=== PATIENT | female | born 1970 | race Caucasian/White ===

== ENCOUNTER 2021-11-04 02:02 | Emergency (ER) | payer MEDICAID ==
[~2021-11-04] VITALS: Ht 160 cm; Wt 52.2 kg
[2021-11-04] MEDS ORDERED: SODIUM CHLORIDE 0.9% 1,000 ML IV ONE ×2 (03:00)
[2021-11-04] MEDS ORDERED: InsuLIN REG 1unit/0.01ml Soln (100units/ml) IV ONE (03:00)
[2021-11-04 03:24] LABS: Basophils # (auto) 0.1 10 ^3/uL (0-0.2); Basophils % (auto) 1.1 % (0.0-2.0); Eosinophils # (auto) 0.3 10 ^3/uL (0-0.8); Eosinophils % (auto) 2.5 % (0.0-7.0); Hematocrit 45.9 % (36.0-46.0); Hemoglobin 15.9 g/dL (12.2-16.2); Lymphocytes # (auto) 3.6 10 ^3/uL (0.4-5.4); Lymphocytes % (auto) 29.6 % (10.0-50.0); Mean Corpuscular Hgb Conc. 34.6 g/dL (32.0-36.0); Mean Corpuscular Volume 95.6 fL (80.0-100.0); Monocytes # (auto) 0.8 10 ^3/uL (0-1.3); Monocytes % (auto) 6.9 % (0.0-12.0); Neutrophils # (auto) 7.2 10 ^3/uL (1.6-8.6); Neutrophils % (auto) 59.9 % (37.0-80.0); Nucleated Red Blood Cells % 0.1 %; Red Cell Distribution Width 12.4 % (11.8-14.3); White Blood Cell 12.1 10^3/uL (4.4-10.8)
[2021-11-04 03:43] LABS: Albumin 3.2 g/dL (3.4-5.0); Calcium 8.8 mg/dL (8.5-10.1); Potassium 4.1 mmol/L (3.5-5.1)
[2021-11-04 03:52] LABS: BUN/Creatinine Ratio 23.3; Bilirubin, Total 0.4 mg/dL (0.2-1.0); Total Protein 7.7 g/dL (6.4-8.2)
[2021-11-04] MEDS ORDERED: NITR-87 PO (04:19)
[2021-11-04 04:25] VITALS: BP 134/93
[2021-11-04] MEDS ORDERED: cefTRIAXone 1GM/50ML D5W 50 ML IV ONE (04:30)
== END 2021-11-04 04:36 | disposition left against medical advice (07) ==
LOC: ER 02:02
DX: E11.65 Type 2 diabetes mellitus with hyperglycemia (principal); N39.0 Urinary tract infection, site not specified; I10 Essential (primary) hypertension; F17.210 Nicotine dependence, cigarettes, uncomplicated; Z90.710 Acquired absence of both cervix and uterus
CPT/HCPCS: 36415; 80053; 83036; 84484; 85025; 96361; 96374; 99283; J1815; J7030

== ENCOUNTER 2021-11-20 10:10 | Inpatient (IN) | payer MEDICAID ==
[~2021-11-20] VITALS: Ht 160 cm; Wt 53.0 kg
[~2021-11-20 10:10] MED LIST: NITR-87 PO
[2021-11-20] MEDS ORDERED: InsuLIN REG 1unit/0.01ml Soln (100units/ml) IV ONE (10:45)
[2021-11-20] MEDS ORDERED: SODIUM CHLORIDE 0.9% 1,000 ML IV ONE ×2 (10:45)
[2021-11-20 11:28] LABS: Albumin 3.6 g/dL (3.4-5.0); Calcium 8.5 mg/dL (8.5-10.1); Potassium 5.5 mmol/L (3.5-5.1)
[2021-11-20 11:30] LABS: Basophils # (auto) 0.1 10 ^3/uL (0-0.2); Basophils % (auto) 0.9 % (0.0-2.0); Eosinophils # (auto) 0 10 ^3/uL (0-0.8); Eosinophils % (auto) 0.1 % (0.0-7.0); Hematocrit 55.4 % (36.0-46.0); Hemoglobin 17.2 g/dL (12.2-16.2); Lymphocytes # (auto) 1.6 10 ^3/uL (0.4-5.4); Lymphocytes % (auto) 11.2 % (10.0-50.0); Mean Corpuscular Hemoglobin 32.6 pg (28.0-32.0); Mean Corpuscular Volume 105.3 fL (80.0-100.0); Monocytes # (auto) 0.3 10 ^3/uL (0-1.3); Monocytes % (auto) 2.4 % (0.0-12.0); Neutrophils # (auto) 12.6 10 ^3/uL (1.6-8.6); Neutrophils % (auto) 85.4 % (37.0-80.0); Nucleated Red Blood Cells % 0.1 %; Red Blood Cells 5.26 10^6/uL (4.0-5.20); Red Cell Distribution Width 14.1 % (11.8-14.3); White Blood Cell 14.7 10^3/uL (4.4-10.8)
[2021-11-20 11:31] LABS: Urine Bacteria NONE SEEN /hpf (None Seen); Urine Blood TRACE /uL (Negative); Urine Mucus FEW (None Seen); Urine Specific Gravity 1.027 (1.001-1.035); Urine WBC 4 /hpf (0 - 5)
[2021-11-20 11:37] LABS: BUN/Creatinine Ratio 18.4; Bilirubin, Total 0.4 mg/dL (0.2-1.0); Total Protein 8.4 g/dL (6.4-8.2)
[2021-11-20] MEDS ORDERED: INSULIN LANTUS (GLARGINE) 1 /0.01ml (100units/ml) SC ONE (12:30)
[2021-11-20] MEDS ORDERED: DEXTROSE (50%) 50ML SYRG IV PRN ×2 (12:30→18:00)
[2021-11-20] MEDS: ACCU-CHEK COMFORT CURVE STRIP VI SCH ×8 (13:33→22:41)
[2021-11-20] MEDS: InsuLIN R (HUMAN) 100 UNITS in SODIUM CHL 0.9% 99 ML IV SCH ×6 (13:35→20:59)
[2021-11-20] MEDS ORDERED: PANTOPRAZOLE 40 MG/10 ML VIAL INJ IV ONE (16:30)
[2021-11-20] MEDS ORDERED: SODIUM CHLORIDE 0.9% 2,000 ML IV ONE (17:00)
[2021-11-20] MEDS ORDERED: MORPHINE SULFATE INJ 2 MG/ml SYRG IV PRN ×2 (18:00)
[2021-11-20] MEDS ORDERED: NITROGLYCERIN 0.4 MG SL TAB SL PRN (18:00)
[2021-11-20] MEDS ORDERED: ONDANSETRON HCL 4 MG/2 ML VIAL IV PRN (18:00)
[2021-11-20] MEDS ORDERED: HYDROcodone-ACET 5/325MG TAB PO PRN (18:00)
[2021-11-20] MEDS ORDERED: ACETAMINOPHEN 325 MG TAB PO PRN (18:00)
[2021-11-20 19:49] LABS: Hematocrit 52.8 % (36.0-46.0); Hemoglobin 16.9 g/dL (12.2-16.2); Mean Corpuscular Hemoglobin 31.5 pg (28.0-32.0); Mean Corpuscular Volume 98.4 fL (80.0-100.0); Red Blood Cells 5.37 10^6/uL (4.0-5.20); Red Cell Distribution Width 12.9 % (11.8-14.3); White Blood Cell 20.4 10^3/uL (4.4-10.8)
[2021-11-20 19:51] LABS: Basophils % (manual) 0 (0.0-2.0); Blast Cells 0; Metamyelocytes % 0; Myelocytes % 0; Promyelocytes % 0; Reactive Lymphocytes 0
[2021-11-20 19:57] LABS: Calcium 8.4 mg/dL (8.5-10.1); Potassium 4.2 mmol/L (3.5-5.1)
[2021-11-20 20:01] LABS: Magnesium 2.1 mg/dL (1.6-2.6); Phosphorus 1.8 mg/dL (2.5-4.90)
[2021-11-20] MEDS: SODIUM CHLORIDE 0.9% 1,000 ML IV SCH ×3 (20:02→23:55)
[2021-11-20 20:39] LABS: Band Neutrophils % (manual) 5; Eosinophils % (manual) 1 (0-7); Lymphocytes % (manual) 9 (10.0-50.0); Monocytes % (manual) 5 (0-12)
[2021-11-20] MEDS ORDERED: SODIUM CHLORIDE 0.9% 1,000 ML IV SCH (22:00)
[2021-11-20 22:55] LABS: Amphetamine Screen, Urine NEGATIVE (NEGATIVE); Barbiturate Scree,Urine NEGATIVE (NEGATIVE); Benzodiazephine Screen, Urine NEGATIVE (NEGATIVE); Cannabinoid Screen, Urine NEGATIVE (NEGATIVE); Cocaine Screen, Urine NEGATIVE (NEGATIVE); Opiate Scree,Urine NEGATIVE (NEGATIVE); Phencyclidine Screen, Urine NEGATIVE (NEGATIVE)
[2021-11-21] MEDS ORDERED: SODIUM CHLORIDE 0.9% 1,000 ML IV SCH
[2021-11-21] MEDS: ACCU-CHEK COMFORT CURVE STRIP VI SCH ×13 (00:01→18:08)
[2021-11-21] MEDS ORDERED: SODIUM BICARBONATE 8.4 % INJ 50ML VIAL IV ONE (01:00)
[2021-11-21] MEDS: SODIUM CHLORIDE 0.9% 1,000 ML IV SCH ×13 (01:00→22:00)
[2021-11-21] MEDS: D5W/SOD CHLO 0.9% 1,000 ML IV SCH ×3 (01:11→21:00)
[2021-11-21 01:33] LABS: BUN/Creatinine Ratio 41.4; Calcium 7.4 mg/dL (8.5-10.1); Potassium 3.4 mmol/L (3.5-5.1)
[2021-11-21 03:57] LABS: BUN/Creatinine Ratio 43.6; Calcium 7.3 mg/dL (8.5-10.1); Potassium 3.3 mmol/L (3.5-5.1)
[2021-11-21 07:30] LABS: Calcium 7.6 mg/dL (8.5-10.1)
[2021-11-21 07:32] LABS: BUN/Creatinine Ratio 43.1
[2021-11-21] MEDS: POTASSIUM CHL 20MEQ/100ML 100 ML IV SCH ×3 (09:40→22:41)
[2021-11-21] MEDS ORDERED: INSULIN LANTUS (GLARGINE) 1 /0.01ml (100units/ml) SC SCH (10:00)
[2021-11-21] MEDS: ENOXAPARIN SOD 40 MG/0.4 ML SYRINGE SC SCH (10:46)
[2021-11-21] MEDS: INSULIN LANTUS (GLARGINE) 1 /0.01ml (100units/ml) SC SCH (10:46)
[2021-11-21 11:01] LABS: BUN/Creatinine Ratio 46.5; Calcium 7.5 mg/dL (8.5-10.1); Potassium 3.4 mmol/L (3.5-5.1)
[2021-11-21 11:29] LABS: Magnesium 1.8 mg/dL (1.6-2.6)
[2021-11-21 11:37] LABS: Phosphorus 0.5 mg/dL (2.5-4.90)
[2021-11-21] MEDS ORDERED: POTASSIUM PHOSPHATE 44 MEQ in D5W 5% 250 ML IV ONE (11:45)
[2021-11-21] MEDS: MAGNESIUM OXIDE 400 MG TAB PO SCH ×2 (12:48→22:00)
[2021-11-21 15:14] LABS: BUN/Creatinine Ratio 36.2; Calcium 7.4 mg/dL (8.5-10.1); Potassium 3.4 mmol/L (3.5-5.1)
[2021-11-21 19:34] LABS: BUN/Creatinine Ratio 34.2; Potassium 3.3 mmol/L (3.5-5.1)
[2021-11-21 22:22] LABS: BUN/Creatinine Ratio 29.4; Calcium 7.1 mg/dL (8.5-10.1); Potassium 3.2 mmol/L (3.5-5.1)
[2021-11-21] MEDS ORDERED: POTASSIUM CHL 20MEQ/100ML 100 ML IV ONE (22:36)
[2021-11-22] MEDS: ACCU-CHEK COMFORT CURVE STRIP VI SCH ×6 (00:15→20:07)
[2021-11-22] MEDS: POTASSIUM CHL 20MEQ/100ML 100 ML IV SCH (00:16)
[2021-11-22] MEDS: InsuLIN REG 1unit/0.01ml Soln (100units/ml) SC SCH ×6 (00:16→20:08)
[2021-11-22 03:21] LABS: BUN/Creatinine Ratio 18.9; Calcium 6.9 mg/dL (8.5-10.1); Potassium 3.5 mmol/L (3.5-5.1)
[2021-11-22 04:30] VITALS: BP 106/65
[2021-11-22] MEDS: D5W/SOD CHLO 0.9% 1,000 ML IV SCH ×3 (06:52→17:00)
[2021-11-22] MEDS ORDERED: BUSP10TA90 PO (06:57)
[2021-11-22] MEDS ORDERED: INS7030I SC (06:57)
[2021-11-22 08:55] LABS: Basophils # (auto) 0.1 10 ^3/uL (0-0.2); Basophils % (auto) 1.3 % (0.0-2.0); Eosinophils # (auto) 0.2 10 ^3/uL (0-0.8); Eosinophils % (auto) 2.1 % (0.0-7.0); Hematocrit 41.5 % (36.0-46.0); Hemoglobin 14.2 g/dL (12.2-16.2); Lymphocytes # (auto) 3.5 10 ^3/uL (0.4-5.4); Lymphocytes % (auto) 33.4 % (10.0-50.0); Mean Corpuscular Hemoglobin 32.4 pg (28.0-32.0); Mean Corpuscular Hgb Conc. 34.2 g/dL (32.0-36.0); Mean Corpuscular Volume 94.7 fL (80.0-100.0); Monocytes # (auto) 0.7 10 ^3/uL (0-1.3); Monocytes % (auto) 6.3 % (0.0-12.0); Neutrophils # (auto) 5.9 10 ^3/uL (1.6-8.6); Neutrophils % (auto) 56.9 % (37.0-80.0); Red Blood Cells 4.39 10^6/uL (4.0-5.20); Red Cell Distribution Width 13.1 % (11.8-14.3); White Blood Cell 10.4 10^3/uL (4.4-10.8)
[2021-11-22 09:00] VITALS: BP 117/89
[2021-11-22 09:08] LABS: Calcium 7.1 mg/dL (8.5-10.1); Magnesium 1.9 mg/dL (1.6-2.6); Potassium 3.4 mmol/L (3.5-5.1)
[2021-11-22 09:11] LABS: BUN/Creatinine Ratio 16.7
[2021-11-22 09:17] LABS: Phosphorus 0.7 mg/dL (2.5-4.90)
[2021-11-22] MEDS: ENOXAPARIN SOD 40 MG/0.4 ML SYRINGE SC SCH (09:47)
[2021-11-22] MEDS: MAGNESIUM OXIDE 400 MG TAB PO SCH ×2 (09:47→22:12)
[2021-11-22] MEDS: INSULIN LANTUS (GLARGINE) 1 /0.01ml (100units/ml) SC SCH (09:48)
[2021-11-22] MEDS ORDERED: POTASSIUM PHOSPHATE 44 MEQ in D5W 5% 250 ML IV ONE (10:00)
[2021-11-22 13:00] VITALS: BP 126/82
[2021-11-22 14:53] LABS: BUN/Creatinine Ratio 13.3; Calcium 7.5 mg/dL (8.5-10.1); Potassium 3.6 mmol/L (3.5-5.1)
[2021-11-22 17:00] VITALS: BP 123/87
[2021-11-22 18:14] LABS: Calcium 7.3 mg/dL (8.5-10.1); Potassium 3.7 mmol/L (3.5-5.1)
[2021-11-22] MEDS: SODIUM CHLORIDE 0.9% 1,000 ML IV SCH ×3 (20:07→20:10)
[2021-11-22 22:00] VITALS: BP 100/69
[2021-11-22] MEDS: busPIRone HCL 10 MG TAB PO SCH (22:12)
[2021-11-22 22:45] LABS: BUN/Creatinine Ratio 18.8; Calcium 7.7 mg/dL (8.5-10.1); Potassium 3.7 mmol/L (3.5-5.1)
[2021-11-23] MEDS: ACCU-CHEK COMFORT CURVE STRIP VI SCH ×4 (00:16→12:27)
[2021-11-23] MEDS: InsuLIN REG 1unit/0.01ml Soln (100units/ml) SC SCH ×4 (00:19→12:33)
[2021-11-23] MEDS: SODIUM CHLORIDE 0.9% 1,000 ML IV SCH ×2 (00:40→09:45)
[2021-11-23] MEDS: D5W/SOD CHLO 0.9% 1,000 ML IV SCH ×2 (04:16→13:00)
[2021-11-23 05:00] VITALS: BP 108/68
[2021-11-23 09:00] VITALS: BP 115/79
[2021-11-23] MEDS: MAGNESIUM OXIDE 400 MG TAB PO SCH (09:45)
[2021-11-23] MEDS: ENOXAPARIN SOD 40 MG/0.4 ML SYRINGE SC SCH (09:45)
[2021-11-23] MEDS: busPIRone HCL 10 MG TAB PO SCH (09:45)
[2021-11-23] MEDS: INSULIN LANTUS (GLARGINE) 1 /0.01ml (100units/ml) SC SCH (09:46)
[2021-11-23] MEDS ORDERED: BLOO1KIT60 XX (12:02)
[2021-11-23] MEDS ORDERED: LANC-347 XX (12:02)
[2021-11-23] MEDS ORDERED: INSU-567 XX (12:02)
[2021-11-23] MEDS ORDERED: INSLANTI SC (12:02)
[2021-11-23 13:00] VITALS: BP 110/78
== END 2021-11-23 13:29 | disposition home or self-care (01) | DRG 420 ==
LOC: EDBD 10:10 → ER 10:10 → TELE 17:55 → TELE-CENTR 11-22 04:27
PROVIDERS: ADMIT Internal Medicine; ATTEND Internal Medicine
DX: E11.10 Type 2 diabetes mellitus with ketoacidosis without coma (principal); E87.8 Other disorders of electrolyte and fluid balance, not elsewhere classified; E83.39 Other disorders of phosphorus metabolism; D72.829 Elevated white blood cell count, unspecified; D75.1 Secondary polycythemia; F15.10 Other stimulant abuse, uncomplicated; F17.210 Nicotine dependence, cigarettes, uncomplicated; Z79.4 Long term (current) use of insulin; Z71.51 Drug abuse counseling and surveillance of drug abuser; Z20.822 Contact with and (suspected) exposure to COVID-19
CPT/HCPCS: 36415; 36600; 71045; 80048; 80053; 80307; 81001; 82010; 82805; 82962; 83735; 83930; 84100; 84484; 85007; 85025; 85027; 93005; 96361; 96374; 99291; C9113; G0378; J1815; J3480; J7042; J7060

== ENCOUNTER 2022-01-09 23:02 | Inpatient (IN) | payer MEDICAID ==
[~2022-01-09] VITALS: Ht 165.1 cm; Wt 54.0 kg
[~2022-01-09 23:02] MED LIST changes: +BLOO1KIT60 XX; +BUSP10TA90 PO; +INSLANTI SC; +INSU-567 XX; +LANC-347 XX; -NITR-87 PO
[2022-01-09 23:43] LABS: Basophils # (auto) 0.1 10 ^3/uL (0-0.2); Eosinophils # (auto) 0.1 10 ^3/uL (0-0.8); Mean Corpuscular Hemoglobin 31.7 pg (28.0-32.0); White Blood Cell 6.3 10^3/uL (4.4-10.8)
[2022-01-09 23:45] LABS: Basophils % (auto) 1.8 % (0.0-2.0); Eosinophils % (auto) 2.3 % (0.0-7.0); Hematocrit 52.8 % (36.0-46.0); Hemoglobin 17.3 g/dL (12.2-16.2); Lymphocytes # (auto) 1.5 10 ^3/uL (0.4-5.4); Lymphocytes % (auto) 24.3 % (10.0-50.0); Mean Corpuscular Hgb Conc. 32.8 g/dL (32.0-36.0); Mean Corpuscular Volume 96.7 fL (80.0-100.0); Monocytes # (auto) 0.8 10 ^3/uL (0-1.3); Monocytes % (auto) 12.2 % (0.0-12.0); Neutrophils # (auto) 3.7 10 ^3/uL (1.6-8.6); Neutrophils % (auto) 59.4 % (37.0-80.0); Nucleated Red Blood Cells % 0.1 %; Red Blood Cells 5.47 10^6/uL (4.0-5.20); Red Cell Distribution Width 13.4 % (11.8-14.3)
[2022-01-10 00:03] LABS: Calcium 8.5 mg/dL (8.5-10.1)
[2022-01-10 00:11] LABS: Potassium 2.8 mmol/L (3.5-5.1)
[2022-01-10 00:19] LABS: BUN/Creatinine Ratio 31.7; Bilirubin, Total 3.3 mg/dL (0.2-1.0); Total Protein 6.9 g/dL (6.4-8.2)
[2022-01-10] MEDS ORDERED: SODIUM CHLORIDE 0.9% 1,000 ML IV ONE (00:30)
[2022-01-10] MEDS: POTASSIUM CHL 20MEQ/100ML 100 ML IV SCH ×2 (01:30→04:04)
[2022-01-10] MEDS: MAGNESIUM SULFATE 1GM/100ML 100 ML IV SCH ×2 (01:30→03:02)
[2022-01-10] MEDS ORDERED: ALBUMIN 25% 100 ML IV ONE (04:45)
[2022-01-10] MEDS ORDERED: IBUPROFEN 400 MG TAB PO PRN (04:45)
[2022-01-10] MEDS ORDERED: MORPHINE SULFATE INJ 2 MG/ml SYRG IV PRN ×2 (04:45→05:00)
[2022-01-10] MEDS ORDERED: SODIUM CHLORIDE 0.9% 1,000 ML IV SCH (04:45)
[2022-01-10] MEDS ORDERED: DOCUSATE SOD 100 MG CAP PO PRN (04:45)
[2022-01-10] MEDS ORDERED: ONDANSETRON HCL 4 MG/2 ML VIAL IV PRN (04:45)
[2022-01-10] MEDS ORDERED: DEXTROSE (50%) 50ML SYRG IV PRN (04:45)
[2022-01-10] MEDS ORDERED: NITROGLYCERIN 0.4 MG SL TAB SL PRN (05:00)
[2022-01-10 05:19] LABS: Basophils # (auto) 0.1 10 ^3/uL (0-0.2); Hemoglobin 17.9 g/dL (12.2-16.2); Monocytes # (auto) 0.7 10 ^3/uL (0-1.3); Nucleated Red Blood Cells % 0.2 %
[2022-01-10 05:21] LABS: Basophils % (auto) 1.1 % (0.0-2.0); Eosinophils # (auto) 0 10 ^3/uL (0-0.8); Eosinophils % (auto) 0.6 % (0.0-7.0); Hematocrit 54.3 % (36.0-46.0); Lymphocytes % (auto) 24.7 % (10.0-50.0); Mean Corpuscular Hemoglobin 32.1 pg (28.0-32.0); Mean Corpuscular Volume 97.4 fL (80.0-100.0); Monocytes % (auto) 9.4 % (0.0-12.0); Neutrophils # (auto) 5.1 10 ^3/uL (1.6-8.6); Neutrophils % (auto) 64.2 % (37.0-80.0); Red Blood Cells 5.58 10^6/uL (4.0-5.20); Red Cell Distribution Width 13.8 % (11.8-14.3); White Blood Cell 7.9 10^3/uL (4.4-10.8)
[2022-01-10] MEDS: ACCU-CHEK COMFORT CURVE STRIP VI SCH ×3 (06:08→17:59)
[2022-01-10 06:10] LABS: Albumin 3.3 g/dL (3.4-5.0); Calcium 8.5 mg/dL (8.5-10.1); Potassium 3.7 mmol/L (3.5-5.1)
[2022-01-10 06:15] LABS: BUN/Creatinine Ratio 33.3
[2022-01-10] MEDS: InsuLIN REG 1unit/0.01ml Soln (100units/ml) SC SCH ×3 (06:15→18:01)
[2022-01-10 06:21] LABS: Bilirubin, Total 4.1 mg/dL (0.2-1.0); Total Protein 6.9 g/dL (6.4-8.2)
[2022-01-10 06:25] LABS: Urine Bacteria FEW /hpf (None Seen); Urine Blood Negative /uL (Negative); Urine Mucus FEW (None Seen); Urine WBC 8 /hpf (0 - 5)
[2022-01-10 10:20] VITALS: BP 126/71
[2022-01-10 11:59] VITALS: BP 143/80
[2022-01-10] MEDS: SODIUM CHLORIDE 0.9% 1,000 ML IV SCH ×2 (13:00→22:09)
[2022-01-10] MEDS: FAMOTIDINE (10MG/ML) 2ML VL IV SCH ×2 (13:44→22:09)
[2022-01-10 14:05] VITALS: BP 117/70
[2022-01-10 17:11] VITALS: BP 127/77
[2022-01-10 22:00] VITALS: BP 132/76
[2022-01-11] MEDS: InsuLIN REG 1unit/0.01ml Soln (100units/ml) SC SCH ×4 (00:23→17:28)
[2022-01-11] MEDS: ACCU-CHEK COMFORT CURVE STRIP VI SCH ×4 (00:26→17:27)
[2022-01-11] MEDS: SODIUM CHLORIDE 0.9% 1,000 ML IV SCH ×3 (04:42→16:36)
[2022-01-11 05:00] VITALS: BP 120/74
[2022-01-11 06:42] LABS: Basophils # (auto) 0.1 10 ^3/uL (0-0.2); Basophils % (auto) 1.3 % (0.0-2.0); Eosinophils # (auto) 0.2 10 ^3/uL (0-0.8); Eosinophils % (auto) 2.6 % (0.0-7.0); Hemoglobin 15.7 g/dL (12.2-16.2); Lymphocytes # (auto) 2.9 10 ^3/uL (0.4-5.4); Lymphocytes % (auto) 31.8 % (10.0-50.0); Mean Corpuscular Hemoglobin 32.2 pg (28.0-32.0); Mean Corpuscular Hgb Conc. 33.3 g/dL (32.0-36.0); Mean Corpuscular Volume 96.7 fL (80.0-100.0); Monocytes # (auto) 0.7 10 ^3/uL (0-1.3); Monocytes % (auto) 8.1 % (0.0-12.0); Neutrophils # (auto) 5.2 10 ^3/uL (1.6-8.6); Neutrophils % (auto) 56.2 % (37.0-80.0); Nucleated Red Blood Cells % 0.2 %; Red Blood Cells 4.86 10^6/uL (4.0-5.20); Red Cell Distribution Width 13.4 % (11.8-14.3); White Blood Cell 9.3 10^3/uL (4.4-10.8)
[2022-01-11 06:55] LABS: INR 1.29 (0.9-1.15)
[2022-01-11 07:12] LABS: Potassium 3.3 mmol/L (3.5-5.1)
[2022-01-11 07:31] LABS: Albumin 2.9 g/dL (3.4-5.0); Bilirubin, Total 4.1 mg/dL (0.2-1.0); Calcium 7.7 mg/dL (8.5-10.1); Magnesium 1.6 mg/dL (1.6-2.6); Total Protein 5.6 g/dL (6.4-8.2)
[2022-01-11 08:27] VITALS: BP 144/85
[2022-01-11] MEDS: LACTULOSE 20Gm/30ML SOLN PO SCH (08:33)
[2022-01-11] MEDS: FAMOTIDINE (10MG/ML) 2ML VL IV SCH (08:33)
[2022-01-11 12:31] VITALS: BP 122/76
[2022-01-11 17:12] VITALS: BP 123/73
[2022-01-11] MEDS: SUCRALFATE 1 GM/10 ML ORAL SUSP PO SCH ×2 (17:27→21:19)
[2022-01-11] MEDS: PANTOPRAZOLE 40 MG/10 ML VIAL INJ IV SCH (21:19)
[2022-01-11 22:00] VITALS: BP 137/93
[2022-01-12] MEDS: InsuLIN REG 1unit/0.01ml Soln (100units/ml) SC SCH ×5 (00:23→23:47)
[2022-01-12] MEDS: ACCU-CHEK COMFORT CURVE STRIP VI SCH ×5 (00:26→23:47)
[2022-01-12 05:00] VITALS: BP 139/89
[2022-01-12] MEDS: SODIUM CHLORIDE 0.9% 1,000 ML IV SCH ×3 (05:43→21:25)
[2022-01-12] MEDS: SUCRALFATE 1 GM/10 ML ORAL SUSP PO SCH ×4 (07:50→21:28)
[2022-01-12 08:24] VITALS: BP 118/82
[2022-01-12] MEDS: LACTULOSE 20Gm/30ML SOLN PO SCH (09:50)
[2022-01-12] MEDS: PANTOPRAZOLE 40 MG/10 ML VIAL INJ IV SCH ×2 (09:50→21:27)
[2022-01-12 11:15] LABS: Albumin 2.9 g/dL (3.4-5.0); Calcium 8.2 mg/dL (8.5-10.1); Potassium 3.8 mmol/L (3.5-5.1)
[2022-01-12 11:25] LABS: BUN/Creatinine Ratio 15.5; Bilirubin, Total 6.2 mg/dL (0.2-1.0); Total Protein 5.7 g/dL (6.4-8.2)
[2022-01-12] MEDS: cefTRIAXone 1GM/50ML D5W 50 ML IV SCH (11:49)
[2022-01-12 12:29] LABS: Hepatitis A Ab IgM Negative; Hepatitis B Core IgM Negative
[2022-01-12 12:35] VITALS: BP 114/80
[2022-01-12 12:36] LABS: Hepatitis C Antibody Reactive (Negative)
[2022-01-12 16:23] VITALS: BP 119/83
[2022-01-12] MEDS: URSODIOL 300 MG CAP PO SCH (21:28)
[2022-01-12 22:00] VITALS: BP 109/69
[2022-01-13] MEDS: SODIUM CHLORIDE 0.9% 1,000 ML IV SCH ×2 (04:30→15:14)
[2022-01-13 05:00] VITALS: BP 138/88
[2022-01-13 05:32] LABS: Basophils # (auto) 0.1 10 ^3/uL (0-0.2); Basophils % (auto) 1.2 % (0.0-2.0); Eosinophils # (auto) 0.3 10 ^3/uL (0-0.8); Eosinophils % (auto) 4.1 % (0.0-7.0); Hematocrit 43.7 % (36.0-46.0); Lymphocytes # (auto) 3.2 10 ^3/uL (0.4-5.4); Lymphocytes % (auto) 47.8 % (10.0-50.0); Mean Corpuscular Hemoglobin 32.8 pg (28.0-32.0); Mean Corpuscular Hgb Conc. 34.4 g/dL (32.0-36.0); Mean Corpuscular Volume 95.4 fL (80.0-100.0); Monocytes # (auto) 0.8 10 ^3/uL (0-1.3); Monocytes % (auto) 11.2 % (0.0-12.0); Neutrophils # (auto) 2.4 10 ^3/uL (1.6-8.6); Neutrophils % (auto) 35.7 % (37.0-80.0); Nucleated Red Blood Cells % 0.3 %; Red Blood Cells 4.58 10^6/uL (4.0-5.20); Red Cell Distribution Width 13.8 % (11.8-14.3); White Blood Cell 6.8 10^3/uL (4.4-10.8)
[2022-01-13 05:51] LABS: Albumin 2.6 g/dL (3.4-5.0); BUN/Creatinine Ratio 17.1; Calcium 7.9 mg/dL (8.5-10.1); Magnesium 1.8 mg/dL (1.6-2.6)
[2022-01-13 05:59] LABS: Bilirubin, Total 3.5 mg/dL (0.2-1.0); Total Protein 5.1 g/dL (6.4-8.2)
[2022-01-13 06:05] LABS: Potassium 2.8 mmol/L (3.5-5.1)
[2022-01-13] MEDS: InsuLIN REG 1unit/0.01ml Soln (100units/ml) SC SCH ×3 (06:10→18:00)
[2022-01-13] MEDS: ACCU-CHEK COMFORT CURVE STRIP VI SCH ×3 (06:11→18:00)
[2022-01-13] MEDS: SUCRALFATE 1 GM/10 ML ORAL SUSP PO SCH ×3 (06:13→17:00)
[2022-01-13] MEDS: cefTRIAXone 1GM/50ML D5W 50 ML IV SCH (08:31)
[2022-01-13 09:00] VITALS: BP 121/79
[2022-01-13] MEDS: PANTOPRAZOLE 40 MG/10 ML VIAL INJ IV SCH (09:45)
[2022-01-13] MEDS: LACTULOSE 20Gm/30ML SOLN PO SCH (09:46)
[2022-01-13] MEDS: URSODIOL 300 MG CAP PO SCH (09:46)
[2022-01-13] MEDS ORDERED: POTASSIUM CHL 20 Meq TABLET PO ONE (10:30)
[2022-01-13] MEDS ORDERED: INSLANTI SC (10:46)
[2022-01-13] MEDS ORDERED: PANT40TA2 PO (10:50)
[2022-01-13] MEDS ORDERED: URSO300C9 PO (10:50)
[2022-01-13] MEDS: POTASSIUM CHL 20MEQ/100ML 100 ML IV SCH ×2 (10:53→14:02)
[2022-01-13 13:00] VITALS: BP 111/68
[2022-01-13 16:24] VITALS: BP 121/87
[2022-01-13 17:39] VITALS: BP 121/87
== END 2022-01-13 17:58 | disposition home or self-care (01) | DRG 422 ==
LOC: EDUNIT# 23:02 → ER 23:02 → EDBD 23:02 → TELE 01-10 04:53 → TELE-EAST 01-10 10:05
PROVIDERS: ADMIT Nurse Practitioner Family; ATTEND Internal Medicine
DX: E86.0 Dehydration (principal); E44.1 Mild protein-calorie malnutrition; B17.9 Acute viral hepatitis, unspecified; R79.89 Other specified abnormal findings of blood chemistry; R74.8 Abnormal levels of other serum enzymes; B19.20 Unspecified viral hepatitis C without hepatic coma; E87.6 Hypokalemia; F15.10 Other stimulant abuse, uncomplicated; N39.0 Urinary tract infection, site not specified; K21.9 Gastro-esophageal reflux disease without esophagitis; Z68.21 Body mass index [BMI] 21.0-21.9, adult; Z79.4 Long term (current) use of insulin; F32.A Depression, unspecified; F41.9 Anxiety disorder, unspecified; Z20.822 Contact with and (suspected) exposure to COVID-19
CPT/HCPCS: 36415; 74176; 76705; 80053; 80074; 81001; 82140; 82962; 83036; 83690; 83735; 85025; 85610; 86038; 93005; 96365; 96366; 96367; 96375; 99291; C9113; G0378; J0696; J1815; J2405; J3480; J3490; P9047

== ENCOUNTER 2022-05-29 17:58 | Inpatient (IN) | payer MEDICAID ==
[~2022-05-29] VITALS: Ht 160 cm; Wt 41.0 kg
[~2022-05-29 17:58] MED LIST changes: +PANT40TA2 PO; +URSO300C9 PO
[2022-05-29] MEDS ORDERED: DEXTROSE (50%) 50ML SYRG IV ONE ×2 (19:30→21:45)
[2022-05-29 19:42] LABS: Basophils # (auto) 0.1 10 ^3/uL (0-0.2); Eosinophils # (auto) 0 10 ^3/uL (0-0.8); Hemoglobin 12.7 g/dL (12.2-16.2); Lymphocytes # (auto) 2.7 10 ^3/uL (0.4-5.4); Neutrophils # (auto) 14.2 10 ^3/uL (1.6-8.6)
[2022-05-29 19:43] LABS: Basophils % (auto) 0.3 % (0.0-2.0); Eosinophils % (auto) 0.2 % (0.0-7.0); Hematocrit 36.6 % (36.0-46.0); Mean Corpuscular Hemoglobin 32.7 pg (28.0-32.0); Mean Corpuscular Hgb Conc. 34.8 g/dL (32.0-36.0); Mean Corpuscular Volume 94.1 fL (80.0-100.0); Monocytes # (auto) 0.9 10 ^3/uL (0-1.3); Monocytes % (auto) 4.9 % (0.0-12.0); Neutrophils % (auto) 79.6 % (37.0-80.0); Red Blood Cells 3.89 10^6/uL (4.0-5.20); Red Cell Distribution Width 14.7 % (11.8-14.3); White Blood Cell 17.9 10^3/uL (4.4-10.8)
[2022-05-29 19:56] LABS: INR 0.97 (0.9-1.15); Partial Thromboplastin Time 26.5 sec (24.6-33.4)
[2022-05-29 20:01] LABS: Alanine Aminotransferase 41 U/L (13-56); Albumin 2.8 g/dL (3.4-5.0); Anion Gap 1 (5-15); Aspartate Aminotransferase 27 U/L (15-37); BUN/Creatinine Ratio 79.2; Blood Alcohol < 3.0 mg/dL (0-5); Blood Urea Nitrogen 19 mg/dL (7-18); Calcium 8.9 mg/dL (8.5-10.1); Carbon Dioxide 31 mmol/L (21-32); Chloride 110 mmol/L (98-107); GFR African American 392 mL/min; GFR Non-African American 324 mL/min; Potassium 3.8 mmol/L (3.5-5.1); Sodium 142 mmol/L (136-145)
[2022-05-29 20:04] LABS: Alkaline Phosphatase 109 U/L (45-117); Bilirubin, Total 0.2 mg/dL (0.2-1.0); Total Protein 6.4 g/dL (6.4-8.2)
[2022-05-29 20:10] LABS: Glucose 29 mg/dL (74-106)
[2022-05-29 20:19] LABS: Alcohol, Urine < 3.0 mg/dL (0-10); Amphetamine Screen, Urine POSITIVE (NEGATIVE); Barbiturate Scree,Urine NEGATIVE (NEGATIVE); Benzodiazephine Screen, Urine POSITIVE (NEGATIVE); Cannabinoid Screen, Urine POSITIVE (NEGATIVE); Cocaine Screen, Urine NEGATIVE (NEGATIVE); Opiate Scree,Urine NEGATIVE (NEGATIVE); Phencyclidine Screen, Urine NEGATIVE (NEGATIVE)
[2022-05-29 21:25] LABS: Urine Amorphous Crystal FEW /hpf (None Seen); Urine Bacteria NONE SEEN /hpf (None Seen); Urine Blood Negative /uL (Negative); Urine Specific Gravity 1.011 (1.001-1.035); Urine WBC <1 /hpf (0 - 5)
[2022-05-29] MEDS ORDERED: D5W/SOD CHL 0.45% 1,000 ML IV ONE (22:15)
[2022-05-30] MEDS ORDERED: LACTATED RINGER'S 1,000 ML IV ONE (00:15)
[2022-05-30] MEDS ORDERED: LORazepam 0.5 MG TAB PO PRN (04:00)
[2022-05-30] MEDS ORDERED: MORPHINE SULFATE INJ 2 MG/ml SYRG IV PRN (04:00)
[2022-05-30] MEDS ORDERED: cefTRIAXone 1GM/50ML D5W 50 ML IV ONE (04:00)
[2022-05-30] MEDS ORDERED: DOCUSATE SOD 100 MG CAP PO PRN (04:00)
[2022-05-30] MEDS ORDERED: TEMAZEPAM 15 MG CAP PO PRN (04:00)
[2022-05-30] MEDS ORDERED: DEXTROSE (50%) 50ML SYRG IV PRN (04:00)
[2022-05-30] MEDS ORDERED: AZITHROMYCIN 500MG/ 250ML 250 ML IV ONE (04:00)
[2022-05-30] MEDS: ACCU-CHEK COMFORT CURVE STRIP VI SCH ×8 (04:00→20:00)
[2022-05-30] MEDS ORDERED: ACETAMINOPHEN 325 MG TAB PO PRN (04:00)
[2022-05-30] MEDS ORDERED: METOCLOPRAMIDE HCL 5MG/ml INJ 2ml VIAL IV PRN (04:00)
[2022-05-30] MEDS ORDERED: MAALOX PLUS or MAALOX 30 ML PO PRN (04:00)
[2022-05-30] MEDS ORDERED: ONDANSETRON HCL 4 MG/2 ML VIAL IV PRN (04:00)
[2022-05-30] MEDS: HYDROcodone-ACET 5/325MG TAB PO PRN ×3 (05:40→19:02)
[2022-05-30] MEDS: SODIUM CHLORIDE 0.9% 1,000 ML IV SCH ×2 (05:42→20:44)
[2022-05-30] MEDS: InsuLIN REG 1unit/0.01ml Soln (100units/ml) SC SCH ×4 (09:19→20:38)
[2022-05-30] MEDS: cefTRIAXone 1GM/50ML D5W 50 ML IV SCH (09:49)
[2022-05-30] MEDS: AZITHROMYCIN 500MG/ 250ML 250 ML IV SCH (09:51)
[2022-05-30 22:37] VITALS: BP 115/26
[2022-05-30] MEDS ORDERED: INSLANTI SC (22:54)
[2022-05-30] MEDS ORDERED: QUET1TAB11 PO (22:54)
[2022-05-31] VITALS (7 sets, daily range): BP systolic 86–116; BP diastolic 56–79
[2022-05-31] MEDS: HYDROcodone-ACET 5/325MG TAB PO PRN ×4 (00:35→20:04)
[2022-05-31] MEDS: ACCU-CHEK COMFORT CURVE STRIP VI SCH ×6 (00:36→20:03)
[2022-05-31] MEDS: InsuLIN REG 1unit/0.01ml Soln (100units/ml) SC SCH ×6 (00:37→20:03)
[2022-05-31] MEDS: cefTRIAXone 1GM/50ML D5W 50 ML IV SCH (08:29)
[2022-05-31] MEDS: AZITHROMYCIN 500MG/ 250ML 250 ML IV SCH (09:52)
[2022-05-31] MEDS ORDERED: INSULIN LANTUS (GLARGINE) 1 /0.01ml (100units/ml) SC SCH (22:00)
[2022-05-31] MEDS: SODIUM CHLORIDE 0.9% 1,000 ML IV SCH (22:40)
[2022-06-01] MEDS: ACCU-CHEK COMFORT CURVE STRIP VI SCH ×5 (00:59→15:37)
[2022-06-01] MEDS: InsuLIN REG 1unit/0.01ml Soln (100units/ml) SC SCH ×5 (01:00→15:45)
[2022-06-01 05:00] VITALS: BP 104/73
[2022-06-01] MEDS: SODIUM CHLORIDE 0.9% 1,000 ML IV SCH (05:40)
[2022-06-01 05:50] LABS: Basophils # (auto) 0.1 10 ^3/uL (0-0.2); Basophils % (auto) 2.1 % (0.0-2.0); Eosinophils # (auto) 0.1 10 ^3/uL (0-0.8); Hematocrit 38.1 % (36.0-46.0); Hemoglobin 13.3 g/dL (12.2-16.2); Lymphocytes # (auto) 2.8 10 ^3/uL (0.4-5.4); Lymphocytes % (auto) 41.4 % (10.0-50.0); Mean Corpuscular Hemoglobin 33.4 pg (28.0-32.0); Mean Corpuscular Hgb Conc. 34.9 g/dL (32.0-36.0); Mean Corpuscular Volume 95.9 fL (80.0-100.0); Monocytes # (auto) 0.4 10 ^3/uL (0-1.3); Monocytes % (auto) 6.5 % (0.0-12.0); Neutrophils # (auto) 3.2 10 ^3/uL (1.6-8.6); Nucleated Red Blood Cells % 0.1 %; Red Blood Cells 3.98 10^6/uL (4.0-5.20); Red Cell Distribution Width 15.7 % (11.8-14.3); White Blood Cell 6.8 10^3/uL (4.4-10.8)
[2022-06-01 06:13] LABS: Calcium 8.5 mg/dL (8.5-10.1); Phosphorus 3.1 mg/dL (2.5-4.90); Potassium 4.1 mmol/L (3.5-5.1)
[2022-06-01 08:00] VITALS: BP 109/63
[2022-06-01] MEDS: cefTRIAXone 1GM/50ML D5W 50 ML IV SCH (08:27)
[2022-06-01] MEDS: HYDROcodone-ACET 5/325MG TAB PO PRN (08:28)
[2022-06-01] MEDS: AZITHROMYCIN 500MG/ 250ML 250 ML IV SCH (09:45)
[2022-06-01 12:00] VITALS: BP 102/69
[2022-06-01 16:00] VITALS: BP 105/64
== END 2022-06-01 18:15 | disposition left against medical advice (07) | DRG 812 ==
LOC: EDBD 17:58 → ER 18:01 → OVERFLOW 05-30 03:59 → TELE-WESTW 05-30 21:50
PROVIDERS: ADMIT Hospitalist; ATTEND Internal Medicine
DX: T38.3X1A Poisoning by insulin and oral hypoglycemic [antidiabetic] drugs, accidental (unintentional), initial encounter (principal); G92.8 Other toxic encephalopathy; E11.649 Type 2 diabetes mellitus with hypoglycemia without coma; J18.9 Pneumonia, unspecified organism; I95.9 Hypotension, unspecified; F12.90 Cannabis use, unspecified, uncomplicated; Z53.29 Procedure and treatment not carried out because of patient's decision for other reasons; E11.65 Type 2 diabetes mellitus with hyperglycemia; Z20.822 Contact with and (suspected) exposure to COVID-19; I10 Essential (primary) hypertension; F17.210 Nicotine dependence, cigarettes, uncomplicated; F15.90 Other stimulant use, unspecified, uncomplicated; Z79.4 Long term (current) use of insulin; Z91.119 Patient's noncompliance with dietary regimen due to unspecified reason; Y92.89 Other specified places as the place of occurrence of the external cause
CPT/HCPCS: 36415; 70450; 71045; 80048; 80053; 80307; 80320; 81001; 82962; 83036; 83735; 83880; 84100; 84484; 85025; 85610; 85730; 87426; 96361; 96365; 96368; 96375; 96376; 99291; G0378; J0696; J1815